=== PATIENT | female | born 2000 | race Caucasian/White ===

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

== ENCOUNTER → 2023-01-19 | Outpatient (CLI) | payer MEDICAID ==
--- NOTE | 2023-01-19 15:37 | US ---
EXAMINATION TYPE: US kidneys/renal and bladder DATE OF EXAM: 01/19/2023 COMPARISON: NONE CLINICAL INDICATION: Female, 22 years old with history of R319 HEMATURIA, UNSPECIFIED; EXAM MEASUREMENTS: Right Kidney: 11.4 x 4.6 x 5.2 cm Left Kidney: 12.0 x 5.3 x 4.9 cm Right Kidney: No hydronephrosis or masses seen Left Kidney: No hydronephrosis or masses seen Bladder: wnl Bilateral Jets seen: Yes There is no evidence for hydronephrosis at this point in time. No nephrolithiasis is seen. No carlos s are identified. The urinary bladder is anechoic. Bilateral ureteral jets are seen. IMPRESSION: Unremarkable study
== END | disposition home or self-care (01) ==
LOC: RADUSWWP 14:07
PROVIDERS: ATTEND Family Medicine
DX: R31.9 Hematuria, unspecified (principal)
CPT/HCPCS: 76770

== ENCOUNTER → 2024-04-03 | Outpatient (CLI) | payer BC, MEDICAID ==
--- NOTE | 2024-04-03 13:29 | CT ---
EXAMINATION TYPE: CT brain wo con CT DLP: 1281 mGycm, Automated exposure control for dose reduction was used. DATE OF EXAM: 04/03/2024 1:17 PM COMPARISON: None. CLINICAL INDICATION:Female, 23 years old with history of G43.001 MIGRAINE W/O AURA, NOT INTRACTABLE, WI R42, headache and dizziness TECHNIQUE: Brain: Multiple axial CT images of the brain were obtained without IV contrast. . Coronal and sagitta l reformats reviewed. FINDINGS: Brain: Extra-axial spaces: No abnormal extra-axial fluid collections. Ventricular system: Within normal limits Cerebral parenchyma: No acute intraparenchymal hemorrhage or mass effect. The jorge-white junction is well differentiated. Cerebellum: Unremarkable. Mass effect: No evidence of midline shift. Intracranial vasculature: unremarkable Soft tissues: Normal. Calvarium/osseous structures: No depressed skull fracture. Paranasal sinuses and mastoid air cells: Clear Visualized orbits: Orbital contents are intact. IMPRESSION: No acute intracranial process. [facility], , 04/03/2024 1:26 PM
== END | disposition home or self-care (01) ==
LOC: RADCTMAIN 12:59
PROVIDERS: ATTEND Family Medicine
CPT/HCPCS: 70450